=== PATIENT | male | born 1955 | race Caucasian/White ===

== ENCOUNTER 2019-06-02 14:46 | Outpatient (CLI) | payer OTHER ==
--- NOTE | 2019-06-02 15:16 | RAD ---
Exam:Left hand third digit 3 views HISTORY: Pain. Injury. FINDINGS: No fracture, cortical irregularity or periosteal reaction. Joint spaces are preserved. IMPRESSION: No fracture.
== END 2019-06-02 14:47 | disposition home or self-care (01) ==
LOC: BICRAD 14:46
PROVIDERS: ATTEND Physician Assistant
DX: S69.92XA Unspecified injury of left wrist, hand and finger(s), initial encounter (principal)